=== PATIENT | male | born 1965 | race Caucasian/White ===

== ENCOUNTER 2022-08-06 06:07 | Observation (INO) ==
--- NOTE | 2022-07-15 12:00 | PAT Medication Instructions ---
Medication Instructions Date of Service July 15, 2022 Home Medications amlodipine 10 mg-benazepril 40 mg capsule (Lotrel) 1 cap PO QPM ascorbic acid (vitamin C) 100 mg tablet (Vitamin C) 100 mg PO QAM aspirin 81 mg tablet 81 mg PO QPM cholecalciferol (vitamin D3) 50 mcg (2,000 unit) capsule (Vitamin D3) 50 mcg PO QAM hydrochlorothiazide 12.5 mg tablet 12.5 mg PO QAM loratadine 10 mg tablet (Claritin) 10 mg PO QPM PRN multivitamin 1 tab PO QAM simvastatin 20 mg tablet 20 mg PO PM zinc 25 mg tablet 25 mg PO QAM DO NOT take the morning of surgery ascorbic acid (vitamin C) 100 mg tablet (Vitamin C) 100 mg PO QAM cholecalciferol (vitamin D3) 50 mcg (2,000 unit) capsule (Vitamin D3) 50 mcg PO QAM hydrochlorothiazide 12.5 mg tablet 12.5 mg PO QAM multivitamin 1 tab PO QAM zinc 25 mg tablet 25 mg PO QAM Take evening before surgery amlodipine 10 mg-benazepril 40 mg capsule (Lotrel) 1 cap PO QPM aspirin 81 mg tablet 81 mg PO QPM (unless directed otherwise by surgeon) loratadine 10 mg tablet (Claritin) 10 mg PO QPM PRN(if needed) simvastatin 20 mg tablet 20 mg PO PM Other Notes NOTHING TO EAT OR DRINK AFTER MIDNIGHT. If you have any questions please call us at [phone] or [phone] or [phone] or [phone]
--- NOTE | 2022-07-21 11:35 | Anesthesiology Consultation ---
Date of Service July 21, 2022 Assessment & Plan (1) Encounter for pre-operative examination: Chart Review Chart Review: Acceptable Risk for Surgery (pending PCP clearance 07/25/22) and Patient seen in Pre Admission Testing -Awaiting PCP clearance 07/25/22 (send preop testing including EKG) -Due to BMI- patient is NOT a Same Day Joint candidate Per PAT appt on 07/21/22, patient traveled to [place] 07/06/22. Pt is va ccinated for Covid. Will leave to surgeon's discretion if preop Covid testing needed. Educated on importance of using Covid precautions one week prior to surgery Teaching & Discussion Pre-Anesthesia Teaching/Discussion Notes: Instructed NPO after midnight before surgery,except medications with 15 cc of water. Medication instructions provided according to the PAT guidelines. History Surgery Operation Date: 08/06/22 08:50 Proposed Procedures p Right Total Knee Arthroplasty - Bulmaro Andrews MD Height/Weight Height: 5 ft 8 in Weight: 137.5 kg Allergies Allergy/AdvReac Type Severity Reaction Status Date / Time singular Allergy Severe Swelling Uncoded 07/21/22 11:39 of Lip/Tongue/Throat Medications Home Medications Medication Instructions Recorded Confirmed Last Taken amlodipine 10 mg-benazepril 40 mg 1 cap PO QPM 07/11/22 07/11/22 Unknown capsule (Lotrel) ascorbic acid (vitamin C) 100 mg 100 mg PO QAM 07/11/22 07/11/22 Unknown tablet (Vitamin C) aspirin 81 mg tablet 81 mg PO QPM 07/11/22 07/11/22 Unknown cholecalciferol (vitamin D3) 50 50 mcg PO QAM 07/11/22 07/11/22 Unknown mcg (2,000 unit) capsule (Vitamin D3) hydrochlorothiazide 12.5 mg tablet 12.5 mg PO QAM 07/11/22 07/11/22 Unknown multivitamin 1 tab PO QAM 07/11/22 07/11/22 Unknown simvastatin 20 mg tablet 20 mg PO PM 07/11/22 07/11/22 Unknown zinc 25 mg tablet 25 mg PO QAM 07/11/22 07/11/22 Unknown cetirizine 10 mg tablet (Zyrtec) 10 mg PO HS 07/21/22 07/21/22 Unknown Past Medical History Medical History History of COVID-19 02/2022- fatigue, sore throat , fever, cough , chills, no hospitalization, no current issues Hyperlipidemia Hypertension Seasonal allergies Sleep apnea cpap nightly Exercise / Class Metabolic Activity II 4-5 Yardwork/Stairs/Walk up hill (one flight of stairs - no chest pain or SOB ) Past Family History Family History Other No family history of adverse response to anesthesia Past Surgical History Surgical History History of esophagogastroduodenoscopy History of left knee replacement History of placement of ear tubes Hx of colonoscopy Hx of sinus surgery Hx of tonsillectomy Past Anesthesia History No Hx of Anesthesia Complications and No Family Hx of Anesthesia Complications History of PONV No Hx of PONV and No Hx of Motion Sickness Social History Smoking Status: Never smoker Do You Dip or Chew Tobacco: No Hx Alcohol Use: Yes alcohol intake frequency: a few times a week Hx Substance Use: No substance use type: does not use Review of Systems Mild cough in the morning secondary CPAP Occ/mild reflux- diet dependent - relieved with OTC meds Patient denies chest pain, shortness of breath, dyspnea on exertion, wheezing, palpitations. No hx of seizures, stroke, [place]. No hx of blood clots or blood transfusions Physical Exam Vital Signs VITALS BP 119/66 P 41 TEMP 98.0 SP02 95% RESP 16 Constitutional no acute distress ENMT Mouth: no TMJ clicking Thyromental Distance: > or= 3.5 Finger Breadths (3.5) Mallampati Class: III Capped to molars Neck neck extension not limited Caps to molars Respiratory normal respiratory effort; no respiratory distress Auscultation: lungs clear to auscultation bilaterally; no wheezes Cardiovascular Heart Sounds: no murmur Vessels: no carotid bruit Irregular rate Musculoskeletal Spine: no pain with cervical ROM Extremities: extremities normal to inspection Psychiatric Orientation: alert Lab Results Anesthesia Preop Results Results Anesthesia Widget: WBC 7.61 K/ul (4.8-10.8) 07/21/22 Hgb 14.7 g/dl (14.0-18.0) 07/21/22 Hct 43.0 % (40.1-51.0) 07/21/22 Plt 300 K/uL (130-400) 07/21/22 Na 141 mmol/L (136-145) 07/21/22 K 4.0 mmol/L (3.5-5.1) 07/21/22 Cl 102 mmol/L (98-107) 07/21/22 CO2 31 mmol/L (21-32) 07/21/22 BUN 13 mg/dl (6-23) 07/21/22 Creat 0.71 mg/dl (0.6-1.4) 07/21/22 Glucose Level 90 mg/dl (70-99(Fasting)) 07/21/22 PT 10.6 Seconds (9.0-12.0) 07/21/22 PTT 26.0 Seconds (21.0-31.0) 07/21/22 INR 1.0 (0.9-1.1) 07/21/22 Urine Color Yellow 07/21/22 Urine Appearance Clear (Clear) 07/21/22 Urine pH 6.5 (4.5-7.5) 07/21/22 Urine Specific [place] 1.015 (1.000-1.030) 07/21/22 Urine Protein Negative (Negative) 07/21/22 Urine Glucose (UA) Negative (Negative) 07/21/22 Urine Ketones Negative (Negative) 07/21/22 Urine Blood Negative (Negative) 07/21/22 Urine Nitrite Negative (Negative) 07/21/22 Urine Bilirubin Negative (Negative) 07/21/22 Urine Urobilinogen Negative (Negative) 07/21/22 Urine Leukocyte Esterase Negative (Negative) 07/21/22 Blood Type B Positive 07/21/22 Antibody Screen NEGATIVE 07/21/22 Testing Electrocardiogram Date: 07/21/22 SR with frequent PVCs at 77bpm Left axis deviation. Nonspecific ST and T wave abnormality. Prolonged QT Chest X-Ray Date: 04/03/22 Findings: + NAD COVID-19 Risk Screen Screening Information COVID-19 Screen Date: 07/21/22 Exposure 21 Days Family/Household +COVID Last 21 Days: No Exposure 10 Days Any COVID Exposure Last 10 Days: No Symptoms Last 10 Days Experienced COVID Sx Last 10 Days: No + COVID 0-90 Days COVID + in Last 0-90 Days: No Risk Plan COVID Risk Plan: No Risk Identified Patient Education COVID Preop Screening Education Complete: Yes
[~2022-08-06 06:07] MED LIST: LR 500ML BOLUS, THEN 15ML/HR IV SCH; LR 60ML/HR IV SCH; ORTHO SCH; ROPIVACAINE 0.5% HCL/PF 150 MG, BUPIVACAINE 0.75% MPF 20 ML, EPINEPHrine 0.15 MG, Ketor... INFIL SCH; TRANEXAMIC ACID 1,000 MG **IV Pre-op IV SCH
--- NOTE | 2022-08-06 06:19 | History & Physical Bridge Note ---
Date of Service August 06, 2022 History & Physical Bridge Note I have examined the patient, reviewed the History & Physical and in the interval since the performance of the History & Physical I have noted the following changes of clinical significance:consent and site verified. no changes noted
[2022-08-06] MEDS ORDERED: EPINEPHrine INJ 1 MG/ML AMP ONE (06:26)
[2022-08-06] MEDS ORDERED: BUPIVACAINE 0.5 % 5 MG/1 ML PF 10ML VIAL ONE (06:26)
[2022-08-06] MEDS ORDERED: DEXAMETHASONE SOD INJ 4 MG/ML VIAL ONE (06:27)
[2022-08-06] MEDS ORDERED: BUPIVACAINE 0.25% 30 ML VIAL ONE (06:27)
[2022-08-06] MEDS ORDERED: MIDAZOLAM HCL 1 MG/ML 2ML VIAL ONE ×3 (07:28→10:01)
[2022-08-06] MEDS ORDERED: fentaNYL citrate 100 MCG/2 ML VIAL ONE ×3 (07:28→11:01)
[2022-08-06] MEDS ORDERED: PROPOFOL IV EMULSION 10 MG/ML 20 ML VIAL IV ONE ×3 (08:12→11:18)
[2022-08-06] MEDS ORDERED: LIDOCAINE 2% MPF LOCAL 5 ML VIAL INFIL ONE (08:12)
[2022-08-06] MEDS ORDERED: ORTHO JOINT ANESTHETIC ONE (09:26)
[2022-08-06] MEDS ORDERED: ATROPINE SULFATE 0.1 MG/ML 10ML SYR IV PRN (09:35)
[2022-08-06] MEDS ORDERED: ePHEDrine sulfate 50 MG/ML AMP IV PRN (09:35)
[2022-08-06] MEDS ORDERED: ONDANSETRON INJ 2 MG/ML 2 ML VIAL IV PRN ×2 (09:35→12:11)
[2022-08-06] MEDS ORDERED: fentaNYL citrate 100 MCG/2 ML VIAL IV PRN (09:35)
[2022-08-06] MEDS ORDERED: PHENYLEPHRINE HCL 10 MG/ML VIAL ONE (09:49)
[2022-08-06] MEDS ORDERED: KETAMINE 50 MG/5 ML SYRINGE ONE (09:55)
--- NOTE | 2022-08-06 10:02 | Discharge Summary (DS) ---
DATE OF ADMISSION: 08/06/2022. DATE OF POTENTIAL DISCHARGE: 08/07/2022. CHIEF COMPLAINT: Right knee pain. HISTORY OF PRESENT ILLNESS: Underwent elective right total knee replacement. To date the hospital course has been uneventful. PAST MEDICAL HISTORY: Remarkable for hypercholesterolemia, hypertension, chronic cough, sleep apnea, CPAP use, rheumatoid arthritis, osteoarthritis, low back pain, hiatal hernia, obesity, and mitral valve prolapse. PAST SURGICAL HISTORY: Remarkable for total knee replacement, tonsillectomy, tympanostomy, tooth extraction. ALLERGIES: SINGULAIR. PREOPERATIVE MEDICATIONS: Include amlodipine, benazepril, vitamins, aspirin 81 mg daily, Zyrtec, steroid nasal spray, hydrochlorothiazide, multivitamin, simvastatin, and zinc. FAMILY HISTORY: Noncontributory. SOCIAL HISTORY: Reveals he is . No tobacco or alcohol use. REVIEW OF SYSTEMS: Noncontributory. ASSESSMENT AND PLAN: Status post right total knee replacement. Continue care pathway. DVT prophylaxis per protocol. Job ID: [id number] [facility]
[2022-08-06] MEDS ORDERED: GLYCOPYRROLATE 0.2 MG/ML VIAL ONE (10:04)
[2022-08-06] MEDS ORDERED: KETOROLAC 30 MG/ML VIAL ONE ×2 (11:00→11:01)
--- NOTE | 2022-08-06 11:37 | Post Operative Brief Note ---
Immediate Post Op Note v1 Date of Surgery August 06, 2022 Pre & Post Diagnosis Operation Date: 08/06/22 08:50 Pre-Op Diagnosis: Right Knee Degenerative Joint Disease Post-Op Diagnosis: Right Knee Degenerative Joint Disease I identified the patient and participated in the time-out.: Yes Procedure Operation Date: 08/06/22 08:50 Actual Procedures p Right Total Knee Arthroplasty(Right) - Bulmaro Andrews MD Surgeon Bulmaro Andrews MD Hand Cloth Examiner Mundo/Jordan Estimated Blood Loss 150 Findings Consistent with Post-Op Diagnosis
--- NOTE | 2022-08-06 12:01 | Operative Report ---
Post Operative Report Pre & Post Diagnosis Operation Date: 08/06/22 08:50 Pre-Op Diagnosis: Right Knee Degenerative Joint Disease Post-Op Diagnosis: Right Knee Degenerative Joint Disease I identified the patient and participated in the time-out.: Yes Procedure Operation Date: 08/06/22 08:50 Actual Procedures p Right Total Knee Arthroplasty(Right) - Bulmaro Andrews MD Surgeon NATAN Andrews MD Media Operator Mundo/Jordan AMADOR Estimated Blood Loss 150 Findings Consistent with Post-Op Diagnosis See operative report Specimens See operative report Drains none Complications none Disposition Accompanied Patient To Recovery: Yes Indications This 56-year-old male presented to the office with complaints of persisting right knee pain. He had tried conservative care measures without improvement. He elected to proceed with surgical intervention after being educated about potential risks and outcomes. Preoperative imaging was obtained. Description of Procedure Patient was administered a spinal anesthetic and then taken to the operating room where he was given sedation. He was prepped and draped in the usual sterile fashion. Please see Dr. Andrews's operative report for specifics of the procedure. I was present for the entire case from initial patient positioning through final wound closure. Assistance was provided in tissue retraction, hemostasis, trial implant placement, final implant placement, and final wound closure. Patient was taken to the recovery room in satisfactory condition. I attest to the content of the Intraoperative Record and any orders documented therein. Any exceptions are noted below.
--- NOTE | 2022-08-06 12:08 | Operative Report (OR) ---
DATE OF PROCEDURE: 08/06/2022 SURGEON: Bulmaro Andrews MD. SLITTING MACHINE OPERATOR HELPER: Dr. Flower. SECOND SLITTING MACHINE OPERATOR HELPER: Alon Ortega PA-C. PREOPERATIVE DIAGNOSIS: Osteoarthritis, right knee, with flexion varus deformity. POSTOPERATIVE DIAGNOSIS: Osteoarthritis, right knee, with flexion varus deformity. OPERATION PERFORMED: Cemented right total knee replacement. PERIOPERATIVE SITUATION: Medically cleared male with intractable knee pain, at this point in time wished to proceed with surgical treatment as he has failed conservative management for an extended period of time. He has had a knee replacement done on the other side. SUMMARY OF IMPLANTS: J&J RP Size 4 narrow right posterior cruciate substituting, size 4 tibial tray, size 4 rotating platform, 10 mm thick, oval dome 3 peg patella size 41, two bags of Pal[place]os G cement. ESTIMATED BLOOD LOSS: 150 mL after tourniquet down. CRYSTALLOID: Per anesthesia. DVT prophylaxis per protocol. DESCRIPTION OF PROCEDURE: The patient was appropriately identified, site verified, consent verified. Antibiotics were confirmed as being given. The right lower extremity was prepped and draped in usual routine fashion. An anterior incision was then made. Sharp dissection carried through skin, blunt dissection down to fascia. This was then incised under direct vision. Parapatellar arthrotomy performed. Synovectomy completed, osteophytes resected. He was extremely tight medially. This was released appropriately. Distal femur was then entered. Cruciates resected. Tibia was subluxated, menisci resected. Femur resected 14 mm, tibia 4 mm, the extension gap was excellent. The tibia was sized between 3.5 to 4, so we went with a 4, it was then matched to femur, which was sized to a 4. The distal femur, after resected and extension gap was good, was sized to a 4 and a cutting block applied. The anterior and posterior condylar and chamfer cuts were made. Flexion gap was checked, it was excellent. Posterior capsule was then injected with 20 mL of the Orthomix. The box cut was then made, and a size 4 fit well. The tibia was then broached and reamed to a size 4 and a 10 mm spacer made everything stable in full extension, mid range flexion and full flexion. The patella tracked well. The patella was resected leaving 14-15 mm. Seating holes made and the button tracked well. All trial implants were then removed. The wound was irrigated with Betadine, Pulsavac, and then the permanent cemented in position - tibia, femur, and patella in that order. At 12 minutes, the tourniquet was deflated, bleeding points were controlled with electrocautery. At 14 minutes, knee was flexed, trial spacer removed. The wound was irrigated with Pulsavac, Betadine and the permanent liner seated, then the knee reduced and closed at 40 degrees of flexion with #2 Vicryl, 2-0 Vicryl and stainless steel clips. Appropriate dressing applied including a Yung Dumont cotton compression dressing. The patient was transferred to recovery room in satisfactory condition, having tolerated the procedure well. He will be weightbearing as tolerated. Start his knee flexion and DVT prophylaxis per protocol. Job ID: [id number] [facility]
[2022-08-06] MEDS ORDERED: ALUMINUM/MAGNESIUM SUSP 30 ML UDC PO PRN (12:11)
[2022-08-06] MEDS ORDERED: TAMSULOSIN HCL 0.4 MG CAP PO PRN (12:11)
[2022-08-06] MEDS ORDERED: diphenhydrAMINE 50 MG/ML VIAL IV PRN (12:11)
[2022-08-06] MEDS ORDERED: VANCOMYCIN CONSULT ACTIVE PRN (12:11)
[2022-08-06] MEDS ORDERED: MAGNESIUM HYDROXIDE SUSP 30 ML UDC PO PRN (12:11)
[2022-08-06] MEDS ORDERED: bisacodyL 10 MG SUPP PR PRN (12:11)
[2022-08-06] MEDS ORDERED: HYDROmorphone INJ 0.5 MG/0.5 ML SYR IV PRN (12:11)
[2022-08-06] MEDS ORDERED: NALOXONE HCL 0.4 MG/1 ML VIAL/CARP IV PRN (12:11)
[2022-08-06] MEDS ORDERED: METOCLOPRAMIDE HCL INJ 5 MG/ML 2 ML VIAL IV PRN (12:11)
--- NOTE | 2022-08-06 12:51 | XRay Report ---
XR knee RT 1 or 2V routine CLINICAL HISTORY: S/P R TKA COMPARISON: Knee radiographs May 26, 2022. FINDINGS: Alignment of the total right knee arthroplasty is anatomic. There is no periprosthetic fra cture or unexpected radiopaque foreign body. There are skin adam. IMPRESSION: Expected findings following total right knee arthroplasty. ACT 112: Negative or not required by law. Electronically signed by: Willy Groves M.D. 08/06/2022 12:49 PM
[2022-08-06] MEDS: SODIUM CHLORIDE 0.9% 1000ML 1,000 ML IV SCH ×2 (13:25→23:14)
[2022-08-06] MEDS: KETOROLAC TROMETHAMINE 15 MG/ML VIAL IV SCH ×2 (13:27→20:41)
[2022-08-06] MEDS ORDERED: VANCOMYCIN HCL 2,000 MG in SODIUM CHLORIDE 0.9% 500 ML IV ONE (13:30)
[2022-08-06] MEDS ORDERED: ORTHO WARFARIN NOMOGRAM SCH (14:00)
[2022-08-06] MEDS: ACETAMINOPHEN 500 MG TAB PO SCH ×2 (14:05→21:55)
--- NOTE | 2022-08-06 14:28 | Anesthesiology Progress Note ---
Date of Service August 06, 2022 Anesthesia Post Procedure Vital Signs Vital Signs: Temp Pulse Pulse Resp BP Pulse Ox O2 Del Method 08/06/22 14:15 71 18 146/88 H 94 Nasal Cannula 08/06/22 13:45 36.6 C 85 16 153/93 H 94 Nasal Cannula 08/06/22 12:45 66 18 118/84 95 Nasal Cannula 08/06/22 12:30 36.4 C L 66 18 134/62 95 Nasal Cannula 08/06/22 12:15 67 21 136/88 95 Nasal Cannula 08/06/22 12:00 36.4 C L 70 21 140/83 93 Nasal Cannula 08/06/22 11:50 75 20 126/66 96 Oxymask 08/06/22 11:43 36.1 C L 82 21 133/76 96 Oxymask 08/06/22 06:56 37.0 C 74 20 167/99 H 96 Room Air O2 Flow Rate 08/06/22 14:15 2 08/06/22 13:45 2 08/06/22 12:45 2 08/06/22 12:30 2 08/06/22 12:15 2 08/06/22 12:00 2 08/06/22 11:50 11 08/06/22 11:43 11 08/06/22 06:56 Transfer of Care Handoff Completed per policy Notes Mental Status: alert / awake / arousable Patient Amnestic to Procedure: Yes Nausea / Vomiting: adequately controlled Pain: adequately controlled Airway Patency, RR, SpO2: stable & adequate BP & HR: stable & adequate Hydration State: stable & adequate Neuraxial Anesthesia: was administered and sensory block is resolving Anesthetic Complications: no major complications apparent and Pt Satisfied with anesthetic care
[2022-08-06] MEDS ORDERED: WARFARIN SOD 5 MG TAB PO SCH (16:00)
[2022-08-06] MEDS: ASCORBIC ACID 500 MG TAB PO SCH (16:52)
[2022-08-06] MEDS: FERROUS GLUCONATE 324 MG TAB PO SCH (16:53)
[2022-08-06] MEDS ORDERED: TRANEXAMIC ACID / 0.7% NACL 1,000 MG/100 ML BAG IV SCH (17:45)
[2022-08-06] MEDS: ceFAZolin 2000MG 2,000 MG/15 ML SYR IV SCH (20:30)
[2022-08-06] MEDS: oxyCODONE HCL IR 5 MG TAB (IMMEDIATE RELEASE) PO PRN (20:52)
[2022-08-06] MEDS: DOCUSATE SODIUM 100 MG CAP PO SCH (20:53)
[2022-08-06] MEDS ORDERED: ASPIRIN 81 MG ECTAB PO SCH (21:00)
[2022-08-06] MEDS ORDERED: ENALAPRIL MALEATE 10 MG TAB PO SCH (21:00)
[2022-08-06] MEDS ORDERED: SENNA 8.6 MG TAB PO SCH (21:00)
[2022-08-06] MEDS ORDERED: AMLODIPINE BENAZEPRIL PO SCH (21:00)
[2022-08-06] MEDS ORDERED: amLODIPine BESYLATE 5 MG TAB PO SCH (21:00)
[2022-08-06] MEDS ORDERED: SIMVASTATIN 20 MG TAB PO SCH (21:00)
[2022-08-07] MEDS: ceFAZolin 2000MG 2,000 MG/15 ML SYR IV SCH (01:26)
[2022-08-07] MEDS: KETOROLAC TROMETHAMINE 15 MG/ML VIAL IV SCH ×2 (01:26→06:30)
[2022-08-07] MEDS: ACETAMINOPHEN 500 MG TAB PO SCH (06:25)
[2022-08-07] MEDS: ASCORBIC ACID 500 MG TAB PO SCH (07:21)
[2022-08-07] MEDS: FERROUS GLUCONATE 324 MG TAB PO SCH (07:22)
--- NOTE | 2022-08-07 07:26 | Progress Notes ---
SUBJECTIVE: Doing well, status post right total knee replacement. He states he is quite comfortable. He notes that he feels this experience is good. This is relative to his last total knee. He denies chest pain, shortness of breath, fever, chills, nausea, vomiting, or headache. A.m. labs are pending. Wound dressing changed, clean, dry, and intact. On neurovascular check, femoral sciatic nerve is normal. Calf is nontender. ASSESSMENT AND PLAN: Doing well. Discharged to home today. Coumadin dose per nomogram. He will st ay overnight in a local motel based on weather his choice. He will follow up with us in 2 week s for staple removal. Job ID: [id number]
[2022-08-07] MEDS: DOCUSATE SODIUM 100 MG CAP PO SCH (07:32)
[2022-08-07] MEDS ORDERED: dexAMETHasone 10 MG in SYRINGE 0 ML IV SCH (08:00)
[2022-08-07] MEDS ORDERED: MULTIVITAMIN TAB PO SCH (09:00)
[2022-08-07] MEDS ORDERED: hydroCHLOROthiazide 25 MG TAB PO SCH (09:00)
--- NOTE | 2022-08-07 09:21 | Orthopedic Progress Note ---
Date of Service August 07, 2022 Assessment & Plan (1) S/P total knee replacement using cement: Plan: Patient's dressings were changed this morning. BHARAT hose were also applied. He understands that these need to be worn 20 out of 24 hours a day. Dressings need to be left in place through the weekend. They may be changed by home health on Thursday, but additional pressure dressing should be applied at that time in similar fashion, due to his extremity size. Prescriptions for Coumadin and Percocet have been sent to his pharmacy. I will send additional prescriptions to her local pharmacy as he will stay the night due to the inclement weather. Written discharge instructions were provided. Continue using the knee immobilizer today and tomorrow. It may be discontinued on Thursday morning. Continue using the walker for ambulation as well. Call the office with any other concerns. Follow-up in the office in 2 weeks as scheduled for staple removal. Admission and Anticipated Discharge Date Admission Date: August 06, 2022 Subjective Patient was seen in his room today. He was laying in bed, awake, and alert. He denies any pain overnight. He feels ready for discharge today. No other complaints. He denies any chest pain, shortness of breath, nausea, vomiting, or abdominal pain. Review of Systems Review of Systems: Unchanged from yesterday. Physical Exam Physical Exam: General: Well-developed, well-nourished, middle-aged male, in no acute distress. Laying in bed. Alert and oriented. Conversive. Skin: Warm dry with good turgor. No rashes. Large Dumont dressing is in place on his right leg. Upon removal, he has a fresh surgical wound. Jes[place] are intact. Wound edges are well approximated. No erythema or warmth. Expected postoperative edema. No ecchymosis. No active bleeding. There is scant dried blood on his inner dressings. Musculoskeletal: Patient has intact motor function of his hip, knee, ankle, and toes on the right side. He is able to perform a straight leg raise. There is full knee extension. Flexion was attempted only to around 45 degrees. Neurologic: Gross sensation is intact across the right leg by soft touch. Peripheral pulses are 2+. Results & Data ([facility]) Vital Signs (Past 12 Hours) Vital Signs Temp Pulse Resp BP Pulse Ox O2 Del Method 08/07/22 08:06 36.9 C 77 20 157/90 H 96 Room Air 08/07/22 03:26 36.8 C 89 18 147/76 H 95 Room Air 08/06/22 21:28 36.6 C 87 18 167/71 H 94 Room Air Laboratory Results Labs are still pending at this time.
[2022-08-07 09:49] LABS: Hematocrit (blood only) 33.5 % (40.1-51.0); Hemoglobin 11.6 g/dl (14.0-18.0); Mean Corpuscular Hemoglobin 32.7 pg (25.0-34.0); Mean Corpuscular Hgb Conc 34.6 g/dL (32.0-36.0); Mean Corpuscular Volume 94.4 fL (80.0-100.0); Mean Platelet Volume 9.7 fL (9.4-12.4); Platelet Count 258 K/uL (130-400); RDW Coefficient of Variation 11.7 % (11.5-14.5); RDW Standard Deviation 40.3 fL (36.4-46.3); Red Blood Count 3.55 M/uL (4.63-6.08); White Blood Count 10.56 K/ul (4.8-10.8)
[2022-08-07 10:00] LABS: Prothrombin Time 10.9 Seconds (9.0-12.0)
[2022-08-07 10:10] LABS: Calcium 8.9 mg/dl (8.5-10.1); Creatinine Clr Calc Pharmacy 142.1 ml/min; Est GFR (African American) 116.3 ml/min; Est GFR (Non-African American) 100.4 ml/min; Potassium 3.8 mmol/L (3.5-5.1)
[2022-08-07] MEDS ORDERED: WARFARIN SOD 5 MG TAB PO ONE (10:50)
[2022-08-07] MEDS: oxyCODONE HCL IR 5 MG TAB (IMMEDIATE RELEASE) PO PRN (13:41)
== END 2022-08-07 14:32 | disposition home health service (06) ==
LOC: ASU 06:07 → PACUINP 06:07 → 3N 13:01